=== PATIENT | male | born 1935 | race African-American/Black ===

== ENCOUNTER 2019-10-10 22:10 | Emergency (ER) | payer MEDICARE, MEDICAID ==
[~2019-10-10] VITALS: Ht 177.8 cm; Wt 50.0 kg
[2019-10-10 22:11] VITALS: BP 0/0
== END 2019-10-11 | disposition expired ==
LOC: ER 22:10
DX: I46.9 Cardiac arrest, cause unspecified (principal); Z66 Do not resuscitate
CPT/HCPCS: 99285